=== PATIENT | male | born 1975 | race African-American/Black ===

== ENCOUNTER 2016-10-03 07:32 | Emergency (ER) | payer OTHER ==
[~2016-10-03 07:32] MED LIST: ACETAMINOPHEN PO; AMOXICILLIN500 M1 PO; COLCRYS0.6 M2 PO; DARVOCET-N 1001 TAB PO; DELTASONE20 MG PO; DOXYCYCLINE PO; HYDRALAZINE HCL50 MG PO; KEFLEX PO; KEFLEX250 M1 PO; KEFLEX500 M1 PO; LASIX PO; NO MEDICATIONS; NORVASC10 MG PO; PREDNISONE PO; PRILOSEC PO; SOD BICARBONATE PO; SPECTAZOLE15 G1 EXT; VICODIN PO; ZESTORETIC 20/11 TAB PO
== END 2016-10-03 08:01 | disposition home or self-care (01) ==
LOC: CED 07:32
DX: T82.42XA Displacement of vascular dialysis catheter, initial encounter (principal); I10 Essential (primary) hypertension; Z79.899 Other long term (current) drug therapy
CPT/HCPCS: 99282